=== PATIENT | male | born 1965 | race Caucasian/White ===

== ENCOUNTER 2019-12-02 22:31 | Emergency (ER) | payer BC ==
[2019-12-03] MEDS: Acetaminophen TAB* 325 MG PO ONE (02:04)
[2019-12-03 02:08] LABS: Hematocrit 41 % (42-52); Mean Corpuscular HGB Conc 34 g/dL (31-36); Mean Corpuscular Hemoglobin 32 pg (27-31); Mean Corpuscular Volume 92 fL (80-94); Mean Platelet Volume 9.5 fL (7.4-10.4); Platelet Count 234 10^3/uL (150-450); Red Blood Count 4.43 10^6 /uL (4.18-5.48); Red Cell Distribution Width 14 % (10-15); White Blood Count 8.8 10^3/uL (3.5-10.8)
--- NOTE | 2019-12-03 02:18 | ED ---
Neurological HPI - HPI Summary HPI Summary: 54-year-old male presents with right sided facial weakness for the past couple hours. He states that he has been having difficulty smiling and closing his eyes. He denies any weakness. He states been having headaches for the past couple days. He states he was sick a couple days ago with a cold. Denies any difficulties with speech. Denies any chest pain shortness of breath. No weakness into the arms. has history of type DM type 1. he has been sick with a cold a couple days ago. - History of Current Complaint Chief Complaint: EDGeneral Stated Complaint: HEADACHE/RT SIDE OF FACE PAIN PER PT Time Seen by Provider: 12/03/19 01:50 Pain Intensity: 7 - Allergy/Home Medications Allergies/Adverse Reactions: Allergies Allergy/AdvReac Type Severity Reaction Status Date / Time No Known Allergies Allergy Verified 12/02/19 22:43 PMH/Surg Hx/FS Hx/Imm Hx Endocrine/Hematology History: Reports: Hx Diabetes Denies: Hx Anticoagulant Therapy, Hx Thyroid Disease Cardiovascular History: Reports: Hx Hypertension Denies: Hx Pacemaker/ICD Respiratory History: Denies: Hx Asthma, Hx Chronic Obstructive Pulmonary Disease (COPD) History: Denies: Hx Renal Disease Neurological History: Denies: Hx Dementia, Hx Seizures Psychiatric History: Denies: Hx Substance Abuse - Immunization History Date of Tetanus Vaccine: unknown Infectious Disease History: No Infectious Disease History: Denies: Hx Hepatitis, Hx Human Immunodeficiency Virus (HIV), Traveled Outside the [place] in Last 30 Days - Family History Known Family History: Positive: Non-Contributory - Social History Alcohol Use: Weekly Alcohol Amount: 5 drinks a week Substance Use Type: Reports: None Smoking Status (MU): Never Smoked Tobacco Review of Systems Negative: Fever Negative: Chest Pain Negative: Shortness Of Breath Neurological: Other - right sided facial drop All Other Systems Reviewed And Are Negative: Yes Physical Exam Triage Information Reviewed: Yes Vital Signs On Initial Exam: Initial Vitals Temp Pulse Resp BP Pulse Ox 98.2 F 78 16 182/101 98 12/02/19 22:35 12/02/19 22:35 12/02/19 22:35 12/02/19 22:35 12/02/19 22:35 Vital Signs Reviewed: Yes Appearance: Positive: Well-Appearing Skin: Positive: Warm, Dry Head/Face: Positive: Normal Head/Face Inspection Eyes: Positive: Normal, EOMI, JOHN, Conjunctiva Clear ENT: Positive: Normal ENT inspection, Pharynx normal, TMs normal Respiratory/Lung Sounds: Positive: Clear to Auscultation, Breath Sounds Present Cardiovascular: Positive: Normal, RRR Musculoskeletal: Positive: Normal Neurological: Positive: Sensory/Motor Intact, Alert, Oriented to Person Place, Time, Facial Droop - right side that includes forehead, Speech Normal. Negative : Slurred Speech, Pronator Drift Present Psychiatric: Positive: Normal - [place] Coma Scale Best Eye Response: 4 - Spontaneous Best Motor Response: 6 - Obeys Commands Best Verbal Response: 5 - Oriented Coma Scale Total: 15 Procedures - Sedation Patient Received Moderate/Deep Sedation with Procedure: No Diagnostics - Vital Signs Vital Signs Temp Pulse Resp BP Pulse Ox 12/03/19 01:50 99 12/03/19 00:45 97.4 F 58 16 144/82 98 12/02/19 22:35 98.2 F 78 16 182/101 98 - Laboratory Lab Results: Lab Results 12/03/19 Range/Units 02:01 WBC 8.8 (3.5-10.8) 10^3/uL RBC 4.43 (4.18-5.48) 10^6 /uL Hgb 14.0 (14.0-18.0) g/dL Hct 41 L (42-52) % MCV 92 (80-94) fL MCH 32 H (27-31) pg MCHC 34 (31-36) g/dL RDW 14 (10-15) % Plt Count 234 (150-450) 10^3/uL MPV 9.5 (7.4-10.4) fL Neut % (Auto) Pending Lymph % (Auto) Pending Talbot % (Auto) Pending Eos % (Auto) Pending Baso % (Auto) Pending Absolute Neuts (auto) Pending Absolute Lymphs (auto) Pending Absolute Monos (auto) Pending Absolute Eos (auto) Pending Absolute Basos (auto) Pending Absolute Nucleated RBC Pending Nucleated RBC % Pending Result Diagrams: 12/03/19 02:01 12/03/19 02:01 Lab Statement: Any lab studies that have been ordered have been reviewed, and results considered in the medical decision making process. - CT brain CT Interpretation Completed By: Radiologist Summary of CT Findings: IMPRESSION: No acute intracranial abnormality. NIH Scale - NIH Scale Level of Consciousness: Alert/Keenly Responsive Ask Patient the Month and His/Her Age: Both Correct Ask Pt to Open/Close Eyes and Security Systems Administrator/Release Non-Paretic Hand: Both Correctly Best Gaze (Only Horizontal Eye Movement): Normal Visual Field Testing: No Visual Loss Facial Paresis-Pt to Smile & Close Eyes or Grimace Symmetry: Partial Paralysis Motor Function - Right Arm: No Drift-Holds 10 Seconds Motor Function - Left Arm: No Drift-Holds 10 Seconds Motor Function - Right Leg: No Drift-Holds 10 Seconds Motor Function - Left Leg: No Drift-Holds 10 Seconds Limb Ataxia-Must be out of Proportion to Weakness Present: Absent Sensory (Use Pinprick to Test Arms/Legs/Trunk/Face): Normal Best Language (Describe Picture, Name Items): No Aphasia Dysarthria (Read Several Words): Normal Extinction and Inattention: No Abnormality Total Score: 2 Course/Dx - Course Course Of Treatment: 54-year-old male presents with right sided facial weakness for the past couple hours. He states that he has been having difficulty smiling and closing his eyes. He denies any weakness. He states been having headaches for the past couple days. He states he was sick a couple days ago with a cold. Denies any difficulties with speech. Denies any chest pain shortness of breath. No weakness into the arms. has history of type DM type 1. he has been sick with a cold a couple days ago. on exam unable to raise forehead well on the right side. Has a facial droop noted. no weakness noted into arms or hands. no difficulties with speech. patient was evaluated to dr sabillon in triage who believed it to be bells palsey. Diagnosis consistent with bells palsy. CT brain normal. lab work wnl. will placed on prednisone. told to use artificial tears for eyes. told follow up with primary. patient understand and agrees with plan. - Differential Dx Differential Diagnoses Neuro: Positive: Dobbs's Palsy, Transient Ischemic Attack , Viral Syndrome - Diagnoses Provider Diagnoses: Dobbs's palsy Discharge ED - Sign-Out/Discharge Documenting (check all that apply): Patient Departure - Discharge Plan Condition: Good Disposition: HOME Prescriptions: predniSONE 20 mg TAB [Deltasone 20 MG TAB*] 60 mg PO DAILY #18 tab Patient Education Materials: Dobbs Palsy (ED) Referrals: Jimmie Elaine MD [Primary Care Provider] - Radha Ramirez MD [Medical Doctor] - Additional Instructions: use artificial tears to keep eyes moist take prednisone once a day for a week Follow up with primary within 5 days A referral was given to neurology Return to ED if develop any new or worsening symptoms - Billing Disposition and Condition Condition: GOOD Disposition: Home
[2019-12-03 02:19] LABS: INR 0.93 (0.82-1.09)
[2019-12-03 02:26] LABS: Albumin 4.1 g/dL (3.2-5.2); Albumin/Globulin Ratio 1.5 (1-3); BUN/Creatinine Ratio 20.2 (8-20); C Reactive Protein 2.13 mg/L (<8.01); Calcium 9.2 mg/dL (8.6-10.3); EGFR African American 100.5 (>60); Globulin 2.7 g/dL (2-4); Potassium 4.7 mmol/L (3.5-5.0); Total Bilirubin 0.5 mg/dL (0.2-1.0); Total Protein 6.8 g/dL (6.4-8.9)
[2019-12-03 02:41] LABS: ABS Basophils 0.1 10^3/ul (0-0.2); ABS Eosinophils 0.5 10^3/ul (0-0.6); ABS Lymphocytes 2.6 10^3/ul (1.0-4.8); ABS Monocytes 0.8 10^3/ul (0-0.8); ABS Neutrophils 4.9 10^3/ul (1.5-7.7); Eosinophil % 5.3 %; Large Platelets Present; Lymphocyte % 29.2 %; Nucleated Red Blood Cells % 0.1
[2019-12-03 03:21] VITALS: BP 123/51
== END 2019-12-03 03:15 | disposition home or self-care (01) ==
LOC: ED 22:31
DX: G51.0 Bell's palsy (principal); E10.9 Type 1 diabetes mellitus without complications; I10 Essential (primary) hypertension
CPT/HCPCS: 36415; 70450; 80053; 83605; 85025; 85610; 86140; 86617; 86618; 99284; A9270-GY; J7512